=== PATIENT | female | born 1975 | race Hispanic/Latino ===

== ENCOUNTER 2018-07-20 14:45 | Outpatient (CLI) | payer OTHER ==
--- NOTE | 2018-07-20 15:39 | Mammography Report ---
BILATERAL DIGITAL SCREENING MAMMOGRAM with CAD : 07/20/18 14:45:00 CLINICAL: Routine screening. COMPARISON:08/07/17 mammogram from [facility]. A report describes probably benign cysts and followup in January 2018 was reported as benign. FINDINGS: The breasts are heterogeneously dense, which may obscure small masses. No mass, architectural distortion or suspicious calcifications. IMPRESSION: No mammographic evidence of malignancy. BI-RADS CATEGORY: 2 -- Benign RECOMMENDATION: Routine mammographic screening in one year. COMMENT: Patient follow-up letters are generated by our [employer] application.
== END 2018-07-20 14:46 | disposition home or self-care (01) ==
LOC: SPVWC 14:45
PROVIDERS: ATTEND Surgery
DX: Z12.31 Encounter for screening mammogram for malignant neoplasm of breast (principal)
CPT/HCPCS: 77067

== ENCOUNTER 2019-08-30 14:43 | Outpatient (CLI) | payer OTHER ==
--- NOTE | 2019-08-30 15:39 | Mammography Report ---
DIGITAL SCREENING MAMMOGRAM WITH CAD, 08/30/2019 INDICATION: Routine screening mammography. TECHNIQUE: Digital bilateral 2D mammography was obtained in the craniocaudal and mediolateral obliq ue projections. This examination was interpreted with the benefit of Computer-Aided Detection analysi s. COMPARISON: 07/20/2018, 08/07/2017. FINDINGS: Breast Density: The breasts are heterogeneously dense, which may obscure small masses. There is no evidence of dominant mass, suspicious calcifications or architectural distortion in the l eft breast. During interval there has been an increase in size of the lobulated nodularity in the upp er-outer quadrant of the right breast, posterior depth. Further evaluation with ultrasound is recomme nded. IMPRESSION: Enlarging nodularity in the right breast. Follow up recommendation: Ultrasound Category 0: Incomplete. Needs additional imaging evaluation and/or prior mammograms for comparison. A "normal" or negative report should not discourage follow up or biopsy of a clinically significant f inding. A written summary of these findings will be mailed to the patient. The patient will be entered into a mammography reporting system which will generate a reminder letter for the patient's next appointmen t at the appropriate interval. The [employer] recommends yearly mammograms starting at age 40 and continuing as l zhou as a woman is in good health. Breast MRI is recommended for women with an approximate 20-25% or greater lifetime risk of breast cancer, including women with a strong family history of breast or ova fany cancer or who have been treated for Hodgkin's disease. Signer Name: Papa Martin MD Signed: 08/30/2019 3:34 PM Workstation Name: [email or web address]
== END 2019-08-30 14:44 | disposition home or self-care (01) ==
LOC: SPVWC 14:43
PROVIDERS: ATTEND Surgery
DX: Z12.31 Encounter for screening mammogram for malignant neoplasm of breast (principal)
CPT/HCPCS: 77067

== ENCOUNTER 2019-09-08 09:10 | Outpatient (CLI) | payer OTHER | END 2019-09-08 09:11 | disposition home or self-care (01) | LOC: LABHHL 09:10 | PROVIDERS: ATTEND Surgery | DX: N60.01 Solitary cyst of right breast (principal) | CPT/HCPCS: 88112 ==

== ENCOUNTER 2020-08-30 13:44 | Outpatient (CLI) | payer OTHER ==
--- NOTE | 2020-08-30 15:33 | Mammography Report ---
DIGITAL SCREENING MAMMOGRAM WITH TOMOSYNTHESIS WITH CAD, 08/30/2020 CLINICAL INFORMATION / INDICATION: Routine screening mammography. TECHNIQUE: Digital bilateral 2D and 3D mammography with tomosynthesis was obtained in the craniocaud al and mediolateral oblique projections. Computer-Aided Detection (CAD) analysis was used for interp retation of this study. COMPARISON: 09/07/2019, 08/30/2019, 07/20/2018 FINDINGS: Breast Density: There are scattered areas of fibroglandular density. No dominant mass, suspicious calcifications, or architectural distortion in the right breast. A nodular density has developed in the 9-10:00 position of the left breast middle depth measuring up to 1 cm. No other significant abnormality of the left breast. IMPRESSION: Indeterminate nodular density in the left breast as above. A limited left breast ultrasou nd and possible diagnostic mammogram with spot compression views is recommended for further evaluatio n. Follow up recommendation: Ultrasound BI-RADS Category 0: Incomplete. Needs additional imaging evaluation and/or prior mammograms for juan ramon rison. A "normal" or negative report should not discourage follow up or biopsy of a clinically significant f inding. A written summary of these findings will be mailed to the patient. The patient will be entered into a mammography reporting system which will generate a reminder letter for the patient's next appointmen t at the appropriate interval. The [employer] recommends yearly mammograms starting at age 40 and continuing as l zhou as a woman is in good health. Breast MRI is recommended for women with an approximate 20-25% or greater lifetime risk of breast cancer, including women with a strong family history of breast or ova fany cancer or who have been treated for Hodgkin's disease. Signer Name: Adelfo Lawrence MD Signed: 08/30/2020 3:28 PM Workstation Name: [id number]
== END 2020-08-30 13:45 | disposition home or self-care (01) ==
LOC: SPVWC 13:44
PROVIDERS: ATTEND Surgery
DX: Z12.31 Encounter for screening mammogram for malignant neoplasm of breast (principal); N64.89 Other specified disorders of breast
CPT/HCPCS: 77063; 77067

== ENCOUNTER 2020-09-13 10:03 | Outpatient (CLI) | payer OTHER ==
--- NOTE | 2020-09-13 14:34 | Ultrasound Report ---
EXAMINATION: Left Limited Breast Ultrasound, 09/13/2020 INDICATION: Abnormal screening mammogram. Screening recall of the left breast for new nodular density. COMPARISON: Screening mammogram, 08/30/2020 FINDINGS: Targeted ultrasound evaluation was performed of the area of interest. Sonographic evaluati on of the left breast demonstrates a 1.1 x 0.5 cm oval cyst at the 2:00 position 3 cm from the nipple . This corresponds to the density seen on the mammogram. There is no evidence of suspicious solid mas s or shadowing. IMPRESSION: Follow up recommendation: Routine yearly BI-RADS Category 2: Benign. Left breast cyst as described representing a benign finding. A normal or "negative" report should not preclude biopsy or follow-up of a clinically suspicious find ing. Signer Name: Christine Galvan MD Signed: 09/13/2020 2:30 PM Workstation Name: [email or web address]
== END 2020-09-13 10:04 | disposition home or self-care (01) ==
LOC: SPVWC 10:03
PROVIDERS: ATTEND Surgery
DX: N60.02 Solitary cyst of left breast (principal)

== ENCOUNTER 2021-10-01 14:19 | Outpatient (CLI) | payer OTHER ==
--- NOTE | 2021-10-03 08:28 | Mammography Report ---
DIGITAL SCREENING MAMMOGRAM WITH CAD, 10/01/2021 CLINICAL INFORMATION / INDICATION: Routine screening mammography. SCREENING MAMMO Z12.31 TECHNIQUE: Digital bilateral 2D mammography was obtained in the craniocaudal and mediolateral obliqu e projections. This examination was interpreted with the benefit of Computer-Aided Detection analysis . COMPARISON: 07/20/2018 through 08/30/2020. FINDINGS: Breast Density: There are scattered areas of fibroglandular density. No dominant mass, suspicious calcifications, or architectural distortion in either breast. Benign-appearing changing nodularity bilaterally is again identified. No new abnormality is seen. IMPRESSION: No mammographic evidence of malignancy. Follow up recommendation: Routine yearly screening mammogram. BI-RADS Category 2: BENIGN. A "normal" or negative report should not discourage follow up or biopsy of a clinically significant f inding. A written summary of these findings will be mailed to the patient. The patient will be entered into a mammography reporting system which will generate a reminder letter for the patient's next appointmen t at the appropriate interval. The [employer] recommends yearly mammograms starting at age 40 and continuing as l zhou as a woman is in good health. Breast MRI is recommended for women with an approximate 20-25% or greater lifetime risk of breast cancer, including women with a strong family history of breast or ova fany cancer or who have been treated for Hodgkin's disease. Signer Name: Blake Maya MD Signed: 10/03/2021 8:24 AM Workstation Name: [id number]
== END 2021-10-01 14:20 | disposition home or self-care (01) ==
LOC: SPVWC 14:19
PROVIDERS: ATTEND Surgery
DX: Z12.31 Encounter for screening mammogram for malignant neoplasm of breast (principal)
CPT/HCPCS: 77067